=== PATIENT | female | born 1975 | race Caucasian/White ===

== ENCOUNTER 2016-12-07 07:35 | Emergency (ER) | payer MEDICAID ==
[~2016-12-07 07:35] MED LIST: COLACE100 MG PO; FLO4 PO; LAC PO; MACROBID100 MG PO; MOTRIN800 MG PO; NOR10T PO
[2016-12-07 07:43] VITALS: BP 138/78
== END 2016-12-07 08:30 | disposition home or self-care (01) ==
LOC: ED 07:35
DX: H60.92 Unspecified otitis externa, left ear (principal)